=== PATIENT | male | born 2000 | race Caucasian/White ===

== ENCOUNTER 2019-05-11 02:49 | Emergency (ER) | payer OTHER ==
[2019-05-11 03:19] VITALS: BP 108/48
== END 2019-05-11 07:00 | disposition left against medical advice (07) ==
LOC: ED 02:49
DX: S01.81XA Laceration without foreign body of other part of head, initial encounter (principal); Z53.21 Procedure and treatment not carried out due to patient leaving prior to being seen by health care provider